=== PATIENT | male | born 1970 | race Caucasian/White ===

== ENCOUNTER 2021-03-27 04:50 | Emergency (ER) | payer BC ==
[2021-03-27 05:49] LABS: HEMOGLOBIN 17.2 gm/dl (14.0-17.5); RED BLOOD COUNT 5.76 M/UL (4.20-5.50); WHITE BLOOD COUNT 6.5 K/UL (4.5-11.0)
[2021-03-27 06:25] LABS: BUN/CREATININE RATIO 11 (0-10)
== END 2021-03-27 11:40 | disposition home or self-care (01) ==
LOC: ER1 04:50
PROVIDERS: Physician Assistant
DX: I10 Essential (primary) hypertension (principal); Z88.0 Allergy status to penicillin; F17.210 Nicotine dependence, cigarettes, uncomplicated
CPT/HCPCS: 71045; 80053; 82550; 82553; 82962; 83874; 84484; 85025; 93005; 99284

== ENCOUNTER 2021-03-27 17:16 | Emergency (ER) | payer BC ==
[2021-03-27 19:40] LABS: HEMOGLOBIN 16.7 gm/dl (14.0-17.5); RED BLOOD COUNT 5.52 M/UL (4.20-5.50)
[2021-03-27 19:43] LABS: WHITE BLOOD COUNT 8.8 K/UL (4.5-11.0)
[2021-03-27 20:15] LABS: BUN/CREATININE RATIO 14 (0-10)
== END 2021-03-28 01:15 | disposition home or self-care (01) ==
LOC: ER1 17:16
PROVIDERS: Physician Assistant
DX: I10 Essential (primary) hypertension (principal); R07.9 Chest pain, unspecified; Z88.0 Allergy status to penicillin; F17.210 Nicotine dependence, cigarettes, uncomplicated
CPT/HCPCS: 71045; 80053; 82550; 82553; 83874; 84484; 85025; 93005; 99285

== ENCOUNTER → 2021-05-18 | Outpatient (CLI) | payer BC | LOC: SLEEP-COR 12:34 | DX: G47.33 Obstructive sleep apnea (adult) (pediatric) (principal) | CPT/HCPCS: 95811 ==